=== PATIENT | male | born 1960 | race Caucasian/White ===

== ENCOUNTER 2019-01-24 20:08 | Emergency (ER) | payer OTHER ==
[~2019-01-24] VITALS: Ht 195.6 cm; Wt 105.7 kg
[2019-01-24 20:08] VITALS: BP_SYST 178
[2019-01-24] MEDS ORDERED: ASPIRIN 81 MG TAB.CHEW PO ONE (20:15)
[2019-01-24] MEDS ORDERED: NACL 0.9% 1,000 ML IV ONE (20:15)
[2019-01-24] MEDS ORDERED: MORPHINE 4 MG/ML INJ. SYRINGE IVP ONE ×2 (20:15→20:30)
[2019-01-24] MEDS ORDERED: ONDANSETRON HCL 4 MG/2 ML VIAL IVP ONE ×2 (20:15→20:30)
[2019-01-24] MEDS ORDERED: HEPARIN SODIUM,PORCINE 5000 UNITS/ML VIAL IVP ONE (20:15)
[2019-01-24] MEDS ORDERED: ASPIRIN 325 MG TABLET ONE (20:27)
[2019-01-24] MEDS ORDERED: HEPARIN SODIUM,PORCINE 5000 UNITS/ML VIAL ONE (20:27)
[2019-01-24] MEDS ORDERED: MORPHINE 4 MG/ML INJ. SYRINGE ONE ×2 (20:28→20:45)
[2019-01-24] MEDS ORDERED: ONDANSETRON HCL 4 MG/2 ML VIAL ONE ×2 (20:29→20:45)
[2019-01-24 20:35] VITALS: BP_SYST 170
[2019-01-24 20:37] LABS: BASOPHILS # (AUTO) 0.1 K/uL (0.0-0.2); EOSINOPHILS # (AUTO) 0.3 K/uL (0.0-0.4); MONOCYTES # (AUTO) 0.7 K/uL (0.0-1.0)
[2019-01-24 20:41] LABS: CREATININE 0.95 mg/dL (0.55-1.30); POTASSIUM 3.9 mmol/L (3.5-5.1)
[2019-01-24 20:49] LABS: BASOPHILS % (AUTO) 1.1 % (0.0-2.0); EOSINOPHILS % (AUTO) 4.4 % (0.0-4.0); HEMATOCRIT 46.7 % (36-54); HEMOGLOBIN 16.6 g/dL (14.0-18.0); LYMPHOCYTES # (AUTO) 2.1 K/uL (1.0-5.5); LYMPHOCYTES % (AUTO) 32.1 % (20.5-51.5); MEAN CORPUSCULAR HEMOGLOBIN 35 pg (27-31); MEAN CORPUSCULAR HGB CONC 36 % (32-36); MEAN CORPUSCULAR VOLUME 99 fL (79.0-98.0); MONOCYTES % (AUTO) 11.4 % (1.7-9.3); NEUTROPHILS # (AUTO) 3.3 K/uL (1.8-7.7); PLATELET COUNT (AUTO) 214 K/uL (130-430); WHITE BLOOD COUNT (AUTO) 6.6 K/uL (4.8-10.8)
[2019-01-24 20:50] LABS: TOTAL BILIRUBIN 0.4 mg/dL (0.0-1.0)
== END 2019-01-24 20:35 | disposition short-term general hospital (02) ==
LOC: SED 20:08
DX: I21.11 ST elevation (STEMI) myocardial infarction involving right coronary artery (principal)
CPT/HCPCS: 36415; 71045; 80053; 83690; 84484; 85025; 93005; 96374; 96375; 99285; J1644; J2270; J2405; J7030